=== PATIENT | female | born 1970 | race Two or more races ===

== ENCOUNTER 2020-09-14 12:29 | Outpatient (CLI) | payer OTHER | END 2020-09-14 12:44 | disposition home or self-care (01) | LOC: RAD 12:29 | PROVIDERS: ATTEND Dermatology | DX: M79.671 Pain in right foot (principal); M86.10 Other acute osteomyelitis, unspecified site ==

== ENCOUNTER 2020-12-08 07:21 | Outpatient (CLI) | payer OTHER | END 2020-12-08 07:23 | disposition home or self-care (01) | LOC: NUCLEAR 07:21 | PROVIDERS: ATTEND Internal Medicine | DX: M86.471 Chronic osteomyelitis with draining sinus, right ankle and foot (principal) | CPT/HCPCS: 78300; A9503 ==

== ENCOUNTER → 2021-05-04 | Outpatient (CLI) | payer OTHER | END | disposition home or self-care (01) | LOC: PPH VACUNA 07:00 | PROVIDERS: ATTEND Emergency Medicine Pediatric Emergency Medicine | DX: Z23 Encounter for immunization (principal) ==